=== PATIENT | female | born 1980 | race Caucasian/White ===

== ENCOUNTER 2023-03-31 16:59 | Emergency (ER) | payer OTHER ==
[2023-03-31 17:07] VITALS: TEMP 97.9
[2023-03-31] MEDS ORDERED: diphenhydrAMINE 50 MG/ML 1 ML VIAL IVP STA (17:14)
[2023-03-31] MEDS ORDERED: FAMOTIDINE 20 MG/2 ML VIAL IV STA (17:14)
[2023-03-31] MEDS ORDERED: SODIUM CHLORIDE 0.9% 500 ML 500 ML IV STA (17:14)
[2023-03-31] MEDS ORDERED: SODIUM CHLORIDE 0.9% 1,000 ML IV STA (17:14)
[2023-03-31] MEDS ORDERED: methylPREDNISolone SOD SUCCI 125 MG/2 ML VIAL IV STA (17:16)
--- NOTE | 2023-03-31 18:00 | ED ---
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 Patient took only one bite. She did have some vomiting episodes. This occurred about one hour prior to arrival. She had self administered 2 tablets of Benadryl one tablet of Pepcid and an EpiPen. She had abdominal pain with vomiting, nasal congestion and mild dyspnea. - Related Data Previous Rx's Medication Instructions Recorded EPINEPHrine (Auto Inject) [Epipen] 0.3 mg IM ONCE PRN #1 each 03/31/23 Famotidine [Pepcid] 20 mg PO DAILY #7 tablet 03/31/23 diphenhydrAMINE [Benadryl] 25 mg PO TID #21 capsule 03/31/23 predniSONE 50 mg PO DAILY #5 tab 03/31/23 Allergies Allergy/AdvReac Type Severity Reaction Status Date / Time Milk Containing Products Allergy Anaphylaxis Verified 03/31/23 17:07 [Dairy] Review of Systems ROS Statement: Those systems with pertinent positive or pertinent negative responses have been documented in the HPI. ROS Other: All systems not noted in ROS Statement are negative. Past Medical History Past Medical History: No Reported History History of Any Multi-Drug Resistant Organisms: None Reported Additional Past Surgical History / Comment(s): lumpectomy Past Psychological History: No Psychological Hx Reported Smoking Status: Never smoker Past Alcohol Use History: Rare Past Drug Use History: Marijuana General Exam Limitations: no limitations General appearance: alert, in no apparent distress Head exam: Present: atraumatic, normocephalic Eye exam: Present: normal appearance, PERRL ENT exam: Present: normal oropharynx Neck exam: Present: normal inspection. Absent: tenderness, meningismus Respiratory exam: Present: normal lung sounds bilaterally. Absent: respiratory distress, wheezes Cardiovascular Exam: Present: normal rhythm, tachycardia GI/Abdominal exam: Absent: distended Neurological exam: Present: alert, oriented X3, CN II-XII intact, normal gait. Absent: motor sensory deficit Psychiatric exam: Present: anxious Skin exam: Present: warm, dry Course Vital Signs 03/31/23 03/31/23 03/31/23 17:01 17:44 18:07 Temperature 97.9 F Pulse Rate 107 H 96 73 Respiratory 22 20 20 Rate Blood Pressure 112/73 117/60 109/62 O2 Sat by Pulse 97 98 99 Oximetry - Reevaluation(s) Reevaluation #1: 03/31/23 18:59 Patient reevaluated, significantly improved, no dyspnea, no further vomiting Medical Decision Making - Medical Decision Making Was pt. sent in by a medical professional or institution ([facility], [facility] [facility], urgent care, hospital, or jail...) When possible be specific @ -No Did you speak to anyone other than the patient for history (EMS, parent, family, police, friend...)? What history was obtained from this source @ -No Did you review nursing and triage notes (agree or disagree)? Why? @ -I reviewed and agree with nursing and triage notes Were old charts reviewed (outside hosp., previous admission, EMS record, old EKG, old radiological studies, urgent care reports/EKG's, jail records)? Report findings @ -No old charts were reviewed Differential Diagnosis (chest pain, altered mental status, abdominal pain women, abdominal pain men, vaginal bleeding, weakness, fever, dyspnea, syncope, headache, dizziness, GI bleed, back pain, seizure, CVA, palpatations, mental health, musculoskeletal)? @ -[Anaphylaxis, food ALLERGY EKG interpreted by me (3pts min.). @ -As above X-rays interpreted by me (1pt min.). @ -None done CT interpreted by me (1pt min.). @ -None done U/S interpreted by me (1pt. min.). @ -None done What testing was considered but not performed or refused? (CT, X-rays, U/S, labs)? Why? @ -None What meds were considered but not given or refused? Why? @ -None Did you discuss the management of the patient with other professionals (professionals i.e. [facility], [employer] [facility], lab, RT, psych nurse, social director, institutional research coordinator, teacher, chief contract officer, showcase trimmer)? Give summary @ -No Was smoking cessation discussed for >3mins.? @ -No Was critical care preformed (if so, how long)? @ -Yes, 35 minutes Were there social determinants of health that impacted care today? How? (H omelessness, low income, unemployed, alcoholism, drug addiction, transportation, low edu. Level, literacy, decrease access to med. care, penitentiary, rehab)? @ -No Was there de-escalation of care discussed even if they declined (Discuss DNR or withdrawal of care, Hospice)? DNR status @ -No What co-morbidities impacted this encounter? (DM, HTN, Smoking, COPD, CAD, Cancer, CVA, ARF, Chemo, Hep., AIDS, mental health diagnosis, sleep apnea, morbid obesity)? @ -[Anaphylaxis to milk Was patient admitted / discharged? Hospital course, mention meds given and route, prescriptions, significant lab abnormalities, going to OR and other pertinent info. 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 Patient has nasal congestion, mild dyspnea, vomiting after eating a sandwich which contained cheese. She has had severe reaction to dairy in the past. She had taken Benadryl and Pepcid prior to arrival as well as administered her EpiPen. She had vomited after oral administration of Benadryl and Pepcid and IV doses were given in the emergency department. She did not require further epinephrine. She was loaded with Solu-Medrol. She was observed for 4 hours total after her epinephrine injection without rebound. She should continue steroids, Benadryl, and Pepcid and her EpiPen is refilled. Undiagnosed new problem with uncertain prognosis? @ -No Drug Therapy requiring intensive monitoring for toxicity (Heparin, Nitro, Insulin, Cardizem)? @ -No Were any procedures done? @ -No Diagnosis/symptom? @ anaphylaxis Acute, or Chronic, or Acute on Chronic? @ -[Acute Uncomplicated (without systemic symptoms) or Complicated (systemic symptoms)? @ -Complicated Side effects of treatment? @ -No Exacerbation, Progression, or Severe Exacerbation? @ -No Poses a threat to life or bodily function? How? (Chest pain, USA, VT, pneumonia, PE, COPD, DKA, ARF, appy, cholecystitis, CVA, Diverticulitis, Homicidal, Suicidal, threat to staff... and all critical care pts) @ -[Yes, anaphylaxis Disposition Clinical Impression: Food allergy, Anaphylaxis Disposition: HOME SELF-CARE Condition: Fair Instructions (If sedation given, give patient instructions): Anaphylaxis (ED) Prescriptions: diphenhydrAMINE [Benadryl] 25 mg PO TID #21 capsule EPINEPHrine (Auto Inject) [Epipen] 0.3 mg IM ONCE PRN #1 each PRN Reason: Anaphylaxis Famotidine [Pepcid] 20 mg PO DAILY #7 tablet predniSONE 50 mg PO DAILY #5 tab Is patient prescribed a controlled substance at d/c from ED?: No Referrals: None,Stated [Primary Care Provider] - 1-2 days Time of Disposition: 20:00
[2023-03-31 19:39] VITALS: RESP 16
[2023-03-31 20:10] VITALS: BP 107/60; PULSE 68
== END 2023-03-31 20:11 | disposition home or self-care (01) ==
LOC: EC 16:59
DX: T78.07XA Anaphylactic reaction due to milk and dairy products, initial encounter (principal); F12.90 Cannabis use, unspecified, uncomplicated; Z91.011 Allergy to milk products
CPT/HCPCS: 99283; 96374; 96375 ×2; 96361 ×3; J1200; J2930